=== PATIENT | female | born 1985 | race Caucasian/White ===

== ENCOUNTER 2017-08-01 09:03 | Emergency (ER) | END 2017-08-01 10:00 | disposition home or self-care (01) ==

== ENCOUNTER 2019-03-13 13:28 | Outpatient (CLI) | payer MEDICAID ==
[~2019-03-13] VITALS: Ht 142.2 cm; Wt 62.7 kg
[~2019-03-13 13:28] MED LIST: ACET500C5 PO; CEPH-443 PO; IBUP-1542 PO; METF-849 PO; PREN1TAB71 PO
[2019-03-13 15:59] VITALS: Ht 142.2 cm; Wt 62.7 kg
[2019-03-13 16:01] VITALS: BP 119/76; PULSE 87; RESP 18
== END 2019-03-13 19:40 | disposition home or self-care (01) ==
LOC: OBT 13:28 → L-D 13:28 → OBT 19:40
PROVIDERS: ATTEND Obstetrics & Gynecology
DX: O41.93X0 Disorder of amniotic fluid and membranes, unspecified, third trimester, not applicable or unspecified (principal); Z3A.37 37 weeks gestation of pregnancy
CPT/HCPCS: 76815; 76816; 76818; 82962; Z7500; G0463

== ENCOUNTER 2019-03-16 08:40 | Outpatient (CLI) | payer MEDICAID ==
[~2019-03-16] VITALS: Ht 134.6 cm; Wt 63.9 kg
[~2019-03-16 08:40] MED LIST changes: -ACET500C5 PO; -CEPH-443 PO; -IBUP-1542 PO
[2019-03-16 09:14] VITALS: Ht 134.6 cm; Wt 63.9 kg
[2019-03-16 09:15] VITALS: BP 110/71; PULSE 88; RESP 18
== END 2019-03-16 12:50 | disposition home or self-care (01) ==
LOC: OBT 08:40 → L-D 08:41 → OBT 12:50
PROVIDERS: ATTEND Obstetrics & Gynecology
DX: O24.419 Gestational diabetes mellitus in pregnancy, unspecified control (principal); Z3A.38 38 weeks gestation of pregnancy
CPT/HCPCS: 76818; 82962; Z7500; G0463

== ENCOUNTER 2019-03-21 06:10 | Inpatient (IN) | payer MEDICAID ==
[~2019-03-21] VITALS: Ht 134.6 cm; Wt 64.6 kg
[2019-03-21 06:36] VITALS: BP 115/74; PULSE 77; RESP 18; Ht 134.6 cm; Wt 64.6 kg
[2019-03-21] MEDS ORDERED: LACTATED RINGER'S 1,000 ML IV SCH (09:23)
[2019-03-21] MEDS ORDERED: MISOPROSTOL 200 MCG TAB PR PRN ×2 (09:30→12:30)
[2019-03-21] MEDS ORDERED: OXYTOCIN 30 UNITS/LR 500 ML IV SCH (09:30)
[2019-03-21] MEDS ORDERED: METHYLERGONOVINE 0.2 MG INJ IM PRN ×2 (09:30→12:30)
[2019-03-21] MEDS ORDERED: CARBOPROST 250 MCG INJ IM PRN ×2 (09:30→12:30)
[2019-03-21] MEDS ORDERED: BUTORPHANOL 2 MG INJ IV PRN (09:30)
[2019-03-21] MEDS ORDERED: OXYTOCIN 30 UNITS/LR 500 ML IV PRN ×2 (09:30→12:30)
[2019-03-21] MEDS ORDERED: LIDOCAINE 1% (MPF) 30 ML INJ INJ PRN (09:30)
[2019-03-21] MEDS: OXYTOCIN 30 UNITS/LR 500 ML IV SCH ×2 (10:55→12:10)
[2019-03-21] MEDS ORDERED: HYDROCODONE/APAP (5/325) TAB PO PRN (11:00)
[2019-03-21] MEDS ORDERED: IBUPROFEN 600 MG TAB PO PRN (11:00)
[2019-03-21] MEDS ORDERED: LACTATED RINGER'S 1,000 ML IV* SCH (12:26)
[2019-03-21] MEDS ORDERED: DEXTROSE 5%-LR 1,000 ML IV SCH (12:26)
[2019-03-21 12:30] VITALS: BP 120/72; PULSE 68; RESP 17
[2019-03-21] MEDS ORDERED: SENNA/DOCUSATE NA (8.6MG/50MG) TAB PO PRN (12:30)
[2019-03-21] MEDS ORDERED: DIBUCAINE 1% 30 GM OINT TOP PRN (12:30)
[2019-03-21] MEDS ORDERED: ZOLPIDEM 5 MG TAB PO PRN (12:30)
[2019-03-21] MEDS ORDERED: OXYCODONE/ASPIRIN (4.88/325) TAB PO PRN (12:30)
[2019-03-21] MEDS ORDERED: MAGNESIUM HYDROXIDE 30ML CUP PO PRN (12:30)
[2019-03-21] MEDS: IBUPROFEN 600 MG TAB PO SCH ×3 (12:30→23:33)
[2019-03-21] MEDS ORDERED: DIPHENHYDRAMINE 50 MG INJ IV PRN (12:30)
[2019-03-21] MEDS ORDERED: ACETAMINOPHEN 325 MG TAB PO PRN (12:30)
[2019-03-21] MEDS ORDERED: ONDANSETRON 4 MG INJ IV PRN (12:30)
[2019-03-21] MEDS: WITCH HAZEL/GLYCERIN PAD PR PRN (13:38)
[2019-03-21] MEDS: LANOLIN HPA 1 PKT TOP PRN (13:39)
[2019-03-21] MEDS: BENZOCAINE 20% 56 ML SPRAY TOP PRN (13:39)
[2019-03-21 16:00] VITALS: BP 120/61; PULSE 75; RESP 18
[2019-03-21 19:45] VITALS: BP 116/80; PULSE 66; RESP 18
[2019-03-22 03:45] VITALS: BP 99/63; PULSE 79; RESP 18
[2019-03-22] MEDS: IBUPROFEN 600 MG TAB PO SCH ×3 (05:35→17:45)
[2019-03-22 08:00] VITALS: BP 103/60; PULSE 77; RESP 16
[2019-03-22 17:09] VITALS: BP 105/60; PULSE 75; RESP 18
[2019-03-22 20:15] VITALS: BP 118/70; PULSE 84; RESP 18
[2019-03-23] MEDS: IBUPROFEN 600 MG TAB PO SCH ×3 (00:04→12:05)
[2019-03-23 03:51] VITALS: BP 133/75; PULSE 68; RESP 18
[2019-03-23] MEDS: WITCH HAZEL/GLYCERIN PAD PR PRN (05:40)
[2019-03-23 08:00] VITALS: BP 114/62; PULSE 91; RESP 20
[2019-03-23] MEDS ORDERED: DIPHTH/TET/ACEL PERTUSS (ADULT) 0.5 ML VIAL IM* ONE (09:00)
[2019-03-23] MEDS ORDERED: MEASLES,MUMPS,RUBELLA VACCINE INJ SC* ONE (09:00)
[2019-03-23] MEDS: BENZOCAINE 20% 56 ML SPRAY TOP PRN (12:10)
[2019-03-23] MEDS: LANOLIN HPA 1 PKT TOP PRN (12:10)
== END 2019-03-23 14:25 | disposition home or self-care (01) | DRG 807 ==
LOC: L-D 06:10 → OBT 06:10 → L-D 08:10 → OBT 08:10 → L-D 08:18 → PP1 12:18
PROVIDERS: ADMIT Obstetrics & Gynecology; ATTEND Obstetrics & Gynecology
PROC: 10E0XZZ Delivery of Products of Conception, External Approach (ICD-10-PCS; principal; 2019-03-21)
PROC: 0W8NXZZ Division of Female Perineum, External Approach (ICD-10-PCS; 2019-03-21)
DX: O80 Encounter for full-term uncomplicated delivery (principal); Z37.0 Single live birth; Z3A.38 38 weeks gestation of pregnancy; O99.013 Anemia complicating pregnancy, third trimester
CPT/HCPCS: 76815; 76818; 85025; 85610; 85730; 86592; 86850; 86900; 86901; G0463; J2210; J2590; J7120; J7121